=== PATIENT | male | born 1965 | race Caucasian/White ===

== ENCOUNTER 2019-03-12 09:56 | Emergency (ER) | payer MEDICAID ==
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
[2019-03-12] MEDS: Sodium Chloride 0.9% 1,000 ML IV ONE (11:00)
[2019-03-12] MEDS: Ondansetron 4 MG/2 ML SDV IVPUSH ONE (11:01)
[2019-03-12] MEDS: Morphine 2 MG/ML Syringe IVPUSH ONE ×2 (11:01→11:24)
[2019-03-12] MEDS: Sodium Chloride 0.9% 10 ML Syringe FLUSH PRN (11:01)
[2019-03-12] MEDS: Iopamidol 755 Mg/ML 100 ML Bottle IV ONE (11:35)
[2019-03-12] MEDS: Ketorolac 30 MG/ML SDV IVPUSH ONE (13:58)
[2019-03-12] MEDS: Ketorolac 30 MG/ML SDV ONE (14:10)
[2019-03-12] MEDS: metroNIDAZOLE 500 MG Tab PO ONE (14:10)
[2019-03-12] MEDS: Sulfamethoxazole/Trimethoprim 800-160 MG Tab PO ONE (14:10)
--- NOTE | 2019-03-12 14:57 | CT ---
INDICATION: Periumbilical abdominal pain times two days, history of diverticulitis, history of umbilical hernia, question incarcerated hernia. Right lower quadrant pain, question appendicitis. CT ABDOMEN AND PELVIS WITH CONTRAST: Spiral 3.75 mm axial sections were obtained through the abdomen and pelvis with 98 mL Isovue 370 at 2 mL/second with 100 second delay, with sagittal and coronal reconstructions 03/12/19 - no comparisons. Total exam DLP = 1,250.91 mGy-cm. The lower lung de [place] and pleural spaces visualized appeared normal. The heart appeared normal in size. No pericardial effusion was seen. There are scattered tiny low density lesions in the liver, compatible with benign cystic structures. There are two ventral abdominal hernias, one in the midline and one to the right of midline, small in size, including only fat. No umbilical hernia was seen. No inguinal hernia was identified. The appendix is visualized on axial images #67 through #78 and coronal images # 46 through #59. It appears slightly dilated with minimally thickened wall, measuring in various locations 8.8 mm, 11 mm, and 9.8 mm. No periappendiceal fat stranding was identified to strongly suggest any severe or acute appendicitis. However, the possibility of a minimal or early appendicitis would be a consideration with this appearance. No comparison study was available to evaluate this as a possible chronic or variant process. Diverticulosis is noted in the descending colon and the sigmoid colon to a greater extent. However, no definite evidence of diverticulitis was identified. No evidence of free air or a definite bowel obstruction was seen. There are, however, noted multiple loops of slightly prominent - mildly dilated small bowel with multiple air fluid levels also associated. This appearance could be on the basis of a process such as gastroenteritis or possibly even Crohns disease and should be correlated clinically. A mechanically obstructive process is not strongly suggested. The gallbladder is absent, compatible with history of its removal, with clips at the cystic duct. Common bile duct was normal in caliber. No intrahepatic ductal dilatation was seen. The pancreas, spleen, adrenal glands, and kidneys appear to be normal. No retroperitoneal mass was seen. No significant prostatic enlargement is seen. Urinary bladder was unremarkable. There is some minimal calcification noted in the aorta, iliac and femoral arteries. No specific gastric abnormality was identified. IMPRESSION: 1. Slightly prominent diameter of the appendix with slightly thickened wall suggested. This could be on the basis of a minimal or early appendicitis but should be correlated clinically. 2. Multiple fluid-filled loops of small bowel, mildly dilated with air fluid levels, raising question of a process such as gastroenteritis. A mechanically obstructive process is felt to be less likely. Followup may be warranted. No free air was seen. 3. Descending and especially sigmoid diverticulosis without definite evidence of diverticulitis. 4. ASD. 5. Post cholecystectomy. 6. Supraumbilical ventral hernias. 7. Multiple tiny low density lesions in the liver, compatible with benign cystic structures. Report was called to Carito Lam DO at approximately 1400 hours on 03/12/19. MTDD
--- NOTE | 2019-03-12 15:00 | ER ---
DATE SEEN: 03/12/2019 HISTORY OF PRESENT ILLNESS: This 53-year-old gentleman is seen in the emergency room at the request of Dr. Lam. The patient presents with a 2-day history of cramping abdominal pain. He did have an episode of nausea and vomiting 2 days ago, but none since. He has been keeping down fluids. He has been having some loose stools. He also states, 9 days ago, he started having severe lower abdominal pain and started taking Bactrim and Flagyl that he had left over from a previous episode of diverticulitis. He only took the antibiotics for 2 or 3 days, but did feel better for the rest of the week. He also states he has been hospitalized a few times for diverticulitis. PAST MEDICAL HISTORY: Diverticulitis, laparoscopic cholecystectomy, and umbilical hernia repair with mesh x2. MEDICATIONS: Reviewed. ALLERGIES: Medical allergies reviewed. LABORATORY DATA: Laboratory evaluation is reviewed. White blood cell count is normal. IMAGING: CT scan is reviewed with Dr. Vera. He does have preperitoneal fat in the supraumbilical hernia that is not causing any obstructive problems. Appendix is borderline large and long, but no inflammation is present alongside it. The sigmoid colon does have diverticulosis, but no obvious fat stranding or diverticulitis seen. Some small bowel loops are dilated and fluid-filled, possibly consistent with gastroenteritis. PHYSICAL EXAMINATION: GENERAL: A pleasant gentleman in no distress. VITAL SIGNS: Reviewed and within normal limits. He is afebrile. LUNGS: Clear. Respirations are nonlabored. HEART: Regular rate and rhythm without murmur. ABDOMEN: Soft throughout. He does have moderate localized right lower quadrant tenderness. Umbilical region is nontender. His right lower quadrant is nontender. No palpable hernias are present. ASSESSMENT: Abdominal pain. PLAN: Findings were reviewed with the patient and offered staying in the hospital for observation overnight with antibiotics. He feels he is well enough that he can go home on Bactrim and Flagyl again and follow up with me in clinic in 2 days to make sure that his symptoms are improving. If pain worsens or localizes to the right lower quadrant, he will return to the emergency room sooner. The above was discussed with Dr. Lam. /[id number] KARYN/CHANDANA
== END 2019-03-12 14:29 | disposition home or self-care (01) ==
LOC: FB.ED 09:56
DX: K57.92 Diverticulitis of intestine, part unspecified, without perforation or abscess without bleeding (principal); F17.210 Nicotine dependence, cigarettes, uncomplicated; Z88.0 Allergy status to penicillin; J44.9 Chronic obstructive pulmonary disease, unspecified
CPT/HCPCS: 36415; 74177; 80053; 81001; 83605; 83690; 85025; 85610; 86140; 96361; 96374; 96375; 99284; A9270; J1885; J2270; J2405; J7030; Q9967

== ENCOUNTER 2019-04-10 11:38 | Emergency (ER) | payer MEDICAID ==
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
[2019-04-10] MEDS: Ondansetron 4 MG/2 ML SDV IVPUSH ONE (12:37)
[2019-04-10] MEDS: Sodium Chloride 0.9% 1,000 ML IV ONE (12:37)
[2019-04-10] MEDS: Ketorolac 30 MG/ML SDV IVPUSH ONE (12:41)
== END 2019-04-10 14:20 | disposition home or self-care (01) ==
LOC: FB.ED 11:38
DX: K52.9 Noninfective gastroenteritis and colitis, unspecified (principal); F17.210 Nicotine dependence, cigarettes, uncomplicated; J44.9 Chronic obstructive pulmonary disease, unspecified; E11.9 Type 2 diabetes mellitus without complications; Z88.0 Allergy status to penicillin
CPT/HCPCS: 36415; 80053; 85025; 86140; 96361; 96374; 96375; 99284; J1885; J2405; J7030